=== PATIENT | male | born 1995 | race Two or more races ===

== ENCOUNTER 2020-08-20 06:10 | Day surgery (SDC) | payer OTHER ==
[~2020-08-20 06:10] MED LIST: ULTRACET PO
[2020-08-20] MEDS ORDERED: DUI500 PO (10:34)
[2020-08-20] MEDS ORDERED: PERCOCET 5-3251 EACH PO (10:34)
== END 2020-08-20 12:45 | disposition home or self-care (01) ==
LOC: CIR.AMB 06:10
PROVIDERS: ATTEND Orthopaedic Surgery
DX: S52.392A Other fracture of shaft of radius, left arm, initial encounter for closed fracture (principal); Z20.822 Contact with and (suspected) exposure to COVID-19